=== PATIENT | male | born 1975 | race Caucasian/White ===

== ENCOUNTER 2024-12-11 18:07 | Emergency (ER) | payer MEDICAID, SELFPAY ==
--- OUTSIDE RECORDS SUMMARY | 2024-12-11 18:08 | XMS_ITS | Clinical Summary ---
Author Organization [facility] Address [address] [place] [id number] Care Team Providers Care Piling Setter Name Role Phone Pcp, No Primary Care Provider Unavailabl e Allergies No known active allergies Medications No known medications Active Problems Problem Noted Date Diagnosed Date Prediabetes 08/06/2024 Obesity 08/06/2024 Hyperlipidemia Anxiety and depression Resolved Problems Problem Noted Date Diagnosed Date Resolved Date Type 2 diabetes mellitus wit hout complication, without long-term current use of insulin 02/17/2022 08/11/2023 Depression with anxiety 12/22/201010/2024 Immunizations Immunization Administration Dates Next Due Td (Age >=7 Years) 05/02/2001 Family History Medical History Relation Name Comments Diabetes type II Brother Relation Name Status Comments Brother Social History Tobacco Use Types Packs/Day Years Used Date Smoking Tobacco: Every Day Cigarettes Smokeless Tobacco: Never Tobacco Cessation:Ready to Q uit: Yes; Counseling Given: Not Answered Alcohol Use Standard Drinks/Week Comments No 0 (1 standard drink = 0.6 oz pur e alcohol) Social Connections Answer Date Recorded Do you often feel lonely or isolated from those around you? 0 08/19/2023 Financial Resource Strain Answer Date R ecorded Difficulty of Paying Living Expenses 3 08/02/2023 Difficulty of Paying Living Expenses Not on file 08/02/2023 Food Insecurity Answer Date Recorded Do you worry your food will run out before you are able to buy more? 2 08/19/2023 Transportation Needs Answer Date Record ed Does lack of transportation keep you from medica l appointments? 2 08/19/2023 Does lack of transportation keep you from work, meetings or getting things that you need? 2 08/19/2023 Housing Stability Answer Date Recorded What is your housing situation today? 3 08/19/2023 Utilities Answer Date Recorded Do you have trouble paying f or utilities (for example, heat, electricity, water, phone)? 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 2 oz) 08/21/2024 1:35 PM CDT with shoes Height - - Body Mass Index - - Plan of Treatment Health Maintenance Due Date Last Done Comments Depression screening for age 12+ 1985 BMI (ht and wt on same day) for age 18+ 1991 Hepatitis B series for 19+ ( 1 of 3 - 19+ 3-dose series) 01/19/1992 Pneumococcal series for age 50+ (1 of 2 - PCV) 01/19/1992 Tetanus booster 05/02/2011 05/02/2001 Colonoscopy through age 75 2018 Zoster (shingles) series for age 50+ (1 of 2) 2023 COVID-19 vaccine series ( season) 2024 Influenza Vaccine (#1) 2024 Lipids for age 45-75 08/01/2028 08/02/2023, 08/02/2023, 02/16/2022, Additional history exists HIV for age 15-65 Completed 08/02/2023 Hepatitis C screening for ag e 18-79 Completed 08/02/2023 Procedures Procedure Name Priority Date/Time Associated Diagnosis Comments ANTI HIV 1/2 Routine 08/02/2023 10:11 AM CDT Encounter for screening for human immunodeficiency virus (HIV) ANTI HCV Routine 08/02/2023 10:11 AM CDT Encounter for hepatitis C screening test for low risk patient LIPID PANEL W REFLEX MEASURED LDL Routine 08/02/2023 10:11 AM CDT Hyperlipidemia, unspecified hyperlipidemia type from Last 3 Months or Most Recently Relevant to Health Maintenance Results * (ABNORMAL) LIPID PANEL W REFLEX MEASURED LDL (08/02/2023 10:11 AM CDT) CHOLESTEROL,TOTAL 244(H) 100 - 199 mg/dL 08/02/2023 5:43 PM CDT [facility] Comment: Cholesterol, Total Reference Ranges Desirable <200 mg/dL Borderline 200-239 mg/dL High >=240 mg/dL TRIGLYCERIDES 797(H) <150 mg/dL 08/02/2023 5:43 PM CDT [facility] HDL CHOLESTEROL 22(L) >40 mg/dL 5:43 PM CDT [facility] NON-HDL CHOLESTEROL 222(H) <145 mg/dl 08/02/2023 5:43 PM CDT [facility] CHOL/HDL RATIO 11.09(H) <4.50 08/02/2023 5:43 PM CDT [facility] LDL CHOLESTEROL 5:43 PM CDT [facility] Comment:Invalid LDL when Tri g >400. VLDL CHOLESTEROL COMMENT 08/02/2023 5:43 PM CDT [facility] Comment:Unable to calculate VLDL. PROVIDER ORDERED STATUS RANDOM 08/02/2023 5:43 PM CDT [facility] Blood BLOOD SPECIMEN / Unknown Venipuncture / Unknown 08/02/2023 10:11 AM CDT 08/02/2023 10:12 AM CDT us Annie LUI CHEMISTRY Final Res ult [facility] [address] [place] [address], * ANTI HCV (08/02/2023 10:11 AM CDT) HEPATITIS C ANTIBODY Non-Reacti ve Non-React napoleon 08/02/2023 5:22 PM CDT [facility] Comment:Please note, per www .CDC.gov: If a patient is known to be at high risk of HCV infection, or is symptomatic, and the physician's suspicion of HCV infection is high, HCV RNA testing is often employed and is of diagnostic value, even after an initial negative anti-HCV test result. Blood BLOOD SPECIMEN / Unknown Venipuncture / Unknown 08/02/2023 10:11 AM CDT 08/02/2023 10:12 AM CDT Annie LUI SEND OUTS Final Res ult Performing Organization Address [facility] Co de Phone Number [facility] [address] [place] [phone], * ANTI HIV 1/2 (08/02/2023 10:11 AM CDT) Pathologist [facility] HIV-1/HIV-2 SCREEN Non-Reacti ve Non-Reacti ve 08/02/2023 5:29 PM CDT [facility] Comment:HIV-1 p24 and HIV-1/ HIV-2 Ab Not Detected. Blood BLOOD SPECIMEN / Unknown Venipuncture / Unknown 08/02/2023 10:11 AM CDT 08/02/2023 10:12 AM CDT Annie LUI SEND OUTS Final Res ult Performing Organization Address City/[facility] Co de Phone Number [facility] [address] [place] [phone], from Last 3 Months or Most Recently Relevant to Health Maintenance Insurance [facility] Care Teams Piling Setter Relationship Specialty Start Date End Date Pcp, No . PCP - General 04/07/23
[2024-12-11 18:12] VITALS: BP 136/85; PULSE 98; RESP 16; TEMP 36.6; O2SAT 98; BMI 36.9
--- NOTE | 2024-12-11 19:51 | ED_ITS ---
HPI - General Adult General Chief complaint: Skin/Abscess/Foreign Body Stated complaint: Rash on both feet Time Seen by Provider: 12/11/24 18:17 History of Present Illness HPI narrative: This is a [age]-year-old generally healthy gentleman presenting to the ER today with his fiancee with concern for a red itchy rash on multiple areas of his body. The rash began a couple of days ago after they were camping in the [facility] on Tuesday. He says he was wearing tall leather boots but did take them off for a little while. Rash initially was noted on his feet and both of his lower extremities (he does have a red area that is almost circumferential in the distribution of a sock from his mid calf and baptiste distally to the dorsum of his foot). He has also had a few scattered rashes on both knees, his right proximal thigh and a small area of rash on his right upper abdomen and left upper abdomen. He shows me the rash is there and they actually do have linear lines that almost appear to be scratch so. He does not know of any specific exposure to poison alee or post and oak. His fiancee is with him and she does not have any rash. No other symptoms with the rash. No trouble breathing. No oral swelling or throat swelling. No fever. No cough. He is otherwise generally healthy. No history of diabetes or immunosuppression. No new medications. No recent new foods. Related Data Previous Rx's ?Medication ?Instructions ?Recorded prednisone 10 mg tablet See Rx Instructions .Route 0 12/11/24 .COMPLEX #60 tabs Allergies Allergy/AdvReac Type Severity Reaction Status Date / Time No Known Drug Allergies Allergy Verified 12/11/24 18:16 Exam Narrative: Exam Narrative: Constitutional: Appears well-developed and well-nourished. Alert. Conversant. Non toxic. HENT: Head: Atraumatic. Nose: Nose normal. Mouth/Throat: Oral mucosa is clear and moist. no trismus. Pharynx normal. Tonsils symmetric. No tonsillar enlargement, erythema, or exudate. Eyes: Conjunctivae normal. EOM normal. Pupils equal, round, and reactive to light. No scleral icterus. Neck: Normal range of motion. Neck supple. No tracheal deviation present. Cardiovascular: Normal rate, regular rhythm. No gallop. No friction rub. No murmur heard. Pulmonary/Chest: Effort normal. No stridor. No respiratory distress. No wheezes. No rales. No rhonchi . Musculoskeletal: RUE: Normal range of motion. No tenderness. No deformity LUE: Normal range of motion. No tenderness. No deformity RLE: Normal range of motion. No edema. No tenderness. No deformity LLE: Normal range of motion. No edema. No tenderness. No deformity Neurological: Alert and oriented to person, place, and time. Normal strength. CN II-VII intact. No sensory deficit. GCS eye subscore is 4. GCS verbal subscore is 5. GCS motor subscore is 6. Normal coordination Skin: He does have a fairly widespread erythematous rash. He has a couple of areas of rash on his anterior abdomen 1 in the right upper quadrant and 1 left. These do appear to be slightly erythematous slightly raised macules with scattered vesicles. These do appear to follow-up pattern of scratching as if he was spreading urushiol her other oral while scratching his abdomen. He also has fairly widespread rashes affecting both of his feet and lower legs. He has significant confluent erythema on the dorsum of both feet which does spare the sole of the sides of his feet and the toes. This spreads proximally about chcf up his shins and calves almost in the distribution of a pair of socks or boots. In the erythema there are multiple small vesicles suggestive of probable poison alee or poison oak. Proximal to this there are more scattered erythemat ous lesions. No pustular lesions or purulent drainage. Otherwise, Skin is warm and dry.No pallor. Normal capillary refill. Psychiatric: Normal mood. Normal affect. Const: Vital Signs, click to edit/add: Vital Signs - 24 hr 12/11/24 18:12 Temperature 97.8 F Pulse Rate [Pulse Oximeter] 98 Respiratory Rate 16 Blood Pressure [Ri ght Upper Arm] 136/85 Pulse Oximetry 98 Oxygen Delivery Me thod Room Air Course Vital Signs Vital signs: Initial Vital Signs Temperature 97.8 F 12/11/24 18:12 Temperature Source Temporal Artery Scan 12/11/24 18:12 Pulse Rate 98 12/11/24 18:12 Respiratory Rate 16 12/11/24 18:12 Blood Pressure 136/85 12/11/24 18:12 Blood Pressure Mean 102 12/11/24 18:12 Blood Pressure Position Sitting 12/11/24 18:12 Pulse Oximetry 98 12/11/24 18:12 Oxygen Delivery Method Room Air 12/11/24 18:12 Vital Signs Temperature 97.8 F 12/11/24 18:12 Pulse Rate 98 12/11/24 18:12 Respiratory Rate 16 12/11/24 18:12 Blood Pressure 136/85 12/11/24 18:12 Pulse Oximetry 98 12/11/24 18:12 Oxygen Delivery Method Room Air 12/11/24 18:12 Temperature 97.8 F 12/11/24 18:12 Pulse Rate 98 12/11/24 18:12 Respiratory Rate 16 12/11/24 18:12 Blood Pressure 136/85 12/11/24 18:12 Pulse Oximetry 98 12/11/24 18:12 Oxygen Delivery Method Room Air 12/11/24 18:12 Medical Decision Making MDM Narrative Medical decision making narrative: This is a pleasant generally healthy 49-year-old male presenting to the ER with a widespread itchy Rosa rash that is fairly prominent on his feet and lower extremities but also has had scattered on his proximal lower extremities and his abdomen. Rash started a couple of days ago after he had spent a night in the [facility]. Clinical impression is suggestive for probable plant induced contact dermatitis such as poison alee or poison oak. No other symptoms to suggest a generalized allergic reaction or angioedema. No airway involvement or bronchospasm. Appearance of the rash is not really consistent with a cellulitis or bacterial infection. Will treat for probable poison alee with a tapering course of prednisone. Also recommend [id number] antihistamines for itch. Also discussed removal of potential urushio by proper cleaning of his skin as well as his clothing, bedding, and other items that he may have come into contact with to prevent further spread. Prescription sent to his pharmacy [facility] for return to the ER reviewed. Patient left the ER before he can be registered Discharge Plan Discharge Clinical Impression: Contact dermatitis, Poison alee Patient Disposition: Home, Self-Care Condition: Stable Instructions: Contact Dermatitis (DC), Poison Alee (ED) Additional Instructions: As we discussed, we suspect that this is a bad reaction to poison alee or poison oak or 1 of the other plants from the forest. It is important to wash off all of the coil from the poison alee plant with special soap such as calamine. You can also treat with Xeljanz cream to help with itching. Be sure to wash all of the clothing and bed sheets that could have been exposed to this oil as well. Use antihistamine such as Benadryl or Zyrtec to help treat itching. We will also treat this reaction with a course of steroids. Please start the prednisone tonight and take it once daily as prescribed until gone. Typically it requires a long tapering dose of steroid to completely get the rash from poison alee to resolve If you have worsening symptoms such as spreading rash, high fever, trouble breathing, or any problems, please come back to the ER right away. Prescriptions: New prednisone 10 mg tablet See Rx Instructions .ROUTE .COMPLEX Qty: 60 0RF Rx Instructions: 60mg PO daily for 5 days, then 50mg PO daily for 2 days, then 40mg PO daily for 2 days, then 30mg PO daily for 2 days, then 20mg PO daily for 2 days, then 10 mg PO daily for 2 days, then stop Follow Up/Referrals: Gege Rosario MD [Primary Care Provider, General Surgery] Stand Alone Forms: [employer] Info Instructions
== END 2024-12-11 18:50 | disposition home or self-care (01) ==
LOC: ED 18:47
PROVIDERS: Emergency Provider Emergency Medicine; PCP Surgery
DX: L23.7 Allergic contact dermatitis due to plants, except food (principal)
CPT/HCPCS: 99282; 99283

== ENCOUNTER 2025-02-02 16:29 | Outpatient (CLI) | payer MEDICAID, SELFPAY | END 2025-02-02 16:30 | disposition home or self-care (01) | LOC: AMB 02-05 15:25 | PROVIDERS: Visit Provider Emergency Medicine Emergency Medical Services | DX: R53.1 Weakness (principal) | CPT/HCPCS: A0998 ==